=== PATIENT | male | born 1935 | race Caucasian/White ===

== ENCOUNTER → 2018-08-08 12:20 | Outpatient (CLI) | payer MEDICARE ==
[2015-04-15 08:54] VITALS: BMI 33.7
--- NOTE | ~2018-08-08 | EC ---
PATIENT:KENA FRAIRE DATE OF SERVICE: 08/08/18 SEX: M MEDICAL RECORD: [id number] DATE OF : 35 LOCATION:[facility], LOC[facility]IN [facility] AGE OF PATIENT: 82 ADMISSION DATE: 08/08/18 REFERRING PHYSICIAN: INTERPRETING PHYSICIAN: EDGARDO FERRO MD ECHOCARDIOGRAM REPORT ECHO CHARGES 4 ECHO COMPLETE Date: 08/08/18 CLINICAL DIAGNOSIS: A-FIB WITH RVR H/O CAD/HTN ECHOCARDIOGRAPHIC MEASUREMENTS (adult normal given) AC root (d.<3.7cm) 3.6 cm LV Septum d (<1.2 cm> 1.4 cm Valve Excursion 0.9 cm LV Septum (systole) 2.1 cm Left Atria (s.<4.0cm> 5.9 cm LVPW d(<1.2cm) 1.5 cm RV (d.<2.3cm) 3.4 cm LVPW (sytole) 2.5 cm LV diastole(<5.6CM) 6.7 cm MV E-F(>70mm/sec) cm LV systole 3.0 cm LVOT Diameter 2.0 cm MV exc.(>10mm) cm Est.ejection fraction (50-75%) % DOPPLER: LVIT cm/sec A cm/sec E 162 cm/sec LA cm/sec RVSP 40.3 mmHg LVOT 87.3 cm/sec AOP1/2T m/s Asc. Ao 206 cm/sec RVOT 50.0 cm/sec RA cm/sec PA 103 cm/sec AV Gradient Peak 17.0 mmHg AV Mean 9.3 mmHg AV Area 1.3 cm MV Gradient Peak 9.6 mmHg MV Mean 3.9 mmHg MV Area cm COMMENTS: OP - HC Community Engagement Manager: Jordin LEACHOE Chief Risk Officer: 1 Dr. Ferro TAPE# PACS Pericardial Effusion N DATE OF SERVICE: 08/08/2018 PROCEDURE: Echocardiogram. FINDINGS: 1. Left ventricular chamber size is mildly dilated. Left ventricular systolic function is normal. Overall ejection fraction estimated at 55%. 2. Left atrium, right atrium, and right ventricular chamber sizes are mildly dilated. Left atrium measures 5.9 cm. 3. 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 4. Doppler interrogation reveals moderate mitral regurgitation, [id number] tricuspid regurgitation, no other valvular insufficiency or stenosis. Pulmonary systolic pressure is estimated at 40 mmHg. 5. No evidence of pericardial effusion or left ventricular thrombus. TRANSINT:[id number] Voice Confirmation ID: [id number] DOCUMENT ID: [id number] EDGARDO FERRO MD CC: [id number] DICTATION DATE: 08/08/18 1456 OIL BURNER TECHNICIAN: 08/08/18 1608 [facility] [address] [place] [address]
[~2018-08-08 12:20] MED LIST: ASPIRIN325 MG PO; FLINTSTONE1 TAB.CHEW PO; GLUCOSAMINE & C1 CAP PO; NORVASC5 MG PO; PLAVIX75 MG PO; PREDNISON PO; VASOTEC20 MG PO
== END | disposition home or self-care (01) ==
LOC: D.HCCARDIO 12:20
PROVIDERS: ATTEND Internal Medicine Interventional Cardiology
DX: I48.91 Unspecified atrial fibrillation (principal)

== ENCOUNTER → 2018-08-11 09:34 | Outpatient (CLI) | payer MEDICARE ==
[2015-04-15 08:54] VITALS: BMI 33.7
== END | disposition home or self-care (01) ==
LOC: D.RAD 09:34
PROVIDERS: ATTEND Family Medicine
DX: R13.10 Dysphagia, unspecified (principal)

== ENCOUNTER → 2019-10-13 09:46 | Outpatient (CLI) | payer MEDICARE ==
[2015-04-15 08:54] VITALS: BMI 33.7
== END | disposition home or self-care (01) ==
LOC: D.HCCECHO 09:30
PROVIDERS: ATTEND Internal Medicine Cardiovascular Disease
DX: I25.10 Atherosclerotic heart disease of native coronary artery without angina pectoris (principal)